=== PATIENT | male | born 1960 | race Caucasian/White ===

== ENCOUNTER 2022-08-05 05:31 | Emergency (ER) | payer BC ==
[~2022-08-05] VITALS: Ht 175.3 cm; Wt 117.9 kg
[2022-08-05 05:46] VITALS: BP_SYST 170
--- NOTE | 2022-08-05 05:46 | NUR ---
Patient to ER bed 2 to gown for evaluation. Side rails up. Report given to MARGARET CHINCHILLA.
--- NOTE | 2022-08-05 05:49 | NUR ---
WALKED IN C/O LEFT FLANK PAIN SINCE 1900, +V. DENIES DYSURIA
[2022-08-05] MEDS ORDERED: KETOROLAC TROMETHAMINE 60 MG/2 ML VIAL IM ONE (06:15)
--- NOTE | 2022-08-05 06:32 | NUR ---
patient alert and oriented x 4. complain about the flank pain. prefer sitting in the chair since he is more comfortable. patient is ambulatory.
--- NOTE | 2022-08-05 06:47 | NUR ---
patient fells better after pain medication as he stated. restless
[2022-08-05 06:58] LABS: BASOPHILS # (AUTO) 0.1 K/uL (0.0-0.2); EOSINOPHILS # (AUTO) 0.3 K/uL (0.0-0.4); EOSINOPHILS % (AUTO) 1.8 % (0.0-4.0); HEMOGLOBIN 14.3 g/dL (14.0-18.0); LYMPHOCYTES # (AUTO) 1.3 K/uL (1.0-5.5); LYMPHOCYTES % (AUTO) 9.1 % (20.5-51.5); MEAN CORPUSCULAR HEMOGLOBIN 29 pg (27-31); MEAN CORPUSCULAR HGB CONC 34 % (32-36); MEAN CORPUSCULAR VOLUME 85 fL (79.0-98.0); MONOCYTES # (AUTO) 1.8 K/uL (0.0-1.0); MONOCYTES % (AUTO) 12.6 % (1.7-9.3); NEUTROPHILS # (AUTO) 10.9 K/uL (1.8-7.7); NEUTROPHILS % (AUTO) 75.5 % (40.0-70.0); PLATELET COUNT (AUTO) 287 K/uL (130-430); RED BLOOD CELL COUNT(AUTO) 4.94 MIL/uL (4.2-6.2); RED CELL DISTRIBUTION WIDTH 13.5 % (9.0-15.0); WHITE BLOOD COUNT (AUTO) 14.4 K/uL (4.8-10.8)
[2022-08-05 07:19] LABS: CALCIUM 8.9 mg/dL (8.4-11.0); CREATININE 1.59 mg/dL (0.55-1.30); POTASSIUM 4.2 mmol/L (3.5-5.1)
[2022-08-05 07:24] LABS: ALBUMIN 3.7 g/dL (3.4-4.8); TOTAL BILIRUBIN 0.3 mg/dL (0.0-1.0)
[2022-08-05] MEDS ORDERED: NACL 0.9% 1,000 ML IV ONE (07:30)
[2022-08-05] MEDS ORDERED: INSULIN REGULAR, HUMAN 10 UNITS/0.1 ML, 3 ML VIAL IVP ONE (07:45)
--- NOTE | 2022-08-05 08:00 | NUR ---
PT SITTING IN CHAIR AT BEDSIDE, STAING HE HAS TROUBLE LYING IN BED. PT STATES PAINS MEDS HELP AND IS COMFORTABLE.
--- NOTE | 2022-08-05 08:20 | NUR ---
MD DR REID AT BEDSIDE, TELLING PT HE HAS KIDNEY STONE.
[2022-08-05] MEDS ORDERED: TRAM50TA PO (08:52)
[2022-08-05] MEDS ORDERED: [UNRECOGNIZED DRUG - CODE] PO (08:52)
[2022-08-05 09:21] VITALS: BP_SYST 135
--- NOTE | 2022-08-05 09:22 | NUR ---
Patient given written and verbal discharge instructions and verbalizes understanding. ER MD DR Bourgeois discussed with patient the results and treatment provided. Patient in stable condition. ID arm band removed. IV catheter removed intact and dressing applied, no active bleeding. Rx of Tramodol, Napoxen given. Patient educated on pain management and to follow up with PMD. Pain Scale 2/10 . Opportunity for questions provided and answered. Medication side effect fact sheet provided.
== END 2022-08-05 09:21 | disposition home or self-care (01) ==
LOC: SED 05:31
DX: N23 Unspecified renal colic (principal); E11.65 Type 2 diabetes mellitus with hyperglycemia; R73.9 Hyperglycemia, unspecified; I10 Essential (primary) hypertension; Z79.899 Other long term (current) drug therapy
CPT/HCPCS: 99284; 74176; 96374; 80053; 82962; 85025; 36415; 76376; 96372; J1885; J7030; J1815